=== PATIENT | male | born 1975 | race Two or more races ===

== ENCOUNTER 2023-12-18 15:56 | Emergency (ER) | payer BC ==
[2023-12-18 16:40] VITALS: BP 155/99; PULSE 17; RESP 82; TEMP 97.9; BMI 30.2
== END 2023-12-18 17:45 | disposition home or self-care (01) ==
LOC: JERFT 15:56
DX: R52 Pain, unspecified (principal); R68.83 Chills (without fever); R09.81 Nasal congestion; R05.9 Cough, unspecified; J06.9 Acute upper respiratory infection, unspecified; Z20.822 Contact with and (suspected) exposure to COVID-19
CPT/HCPCS: 0241U-QW; 99283-25